=== PATIENT | male | born 1955 | race Caucasian/White ===

== ENCOUNTER 2025-01-14 11:39 | Day surgery (SDC) | payer MEDICARE ==
[~2025-01-14] VITALS: Ht 180.3 cm; Wt 96.5 kg
[~2025-01-14 11:39] MED LIST: ATOR1TAB19 PO; LOSA25TA13 PO; THERTAB52 PO
[2025-01-14] MEDS ORDERED: propofoL 200 MG/20 ML VIAL As Ordered ONE (12:59)
[2025-01-14 13:34] VITALS: BP 153/91; O2SAT 97
== END 2025-01-14 13:39 | disposition home or self-care (01) ==
LOC: M OPP 11:39
PROVIDERS: ATTEND Internal Medicine Gastroenterology
DX: Z12.11 Encounter for screening for malignant neoplasm of colon (principal); Z86.0100 Personal history of colon polyps, unspecified; K64.0 First degree hemorrhoids; K57.30 Diverticulosis of large intestine without perforation or abscess without bleeding; I10 Essential (primary) hypertension; F10.10 Alcohol abuse, uncomplicated; Z79.899 Other long term (current) drug therapy